=== PATIENT | male | born 1960 | race Caucasian/White ===

== ENCOUNTER 2017-02-18 21:28 | Inpatient (IN) | payer BC ==
[~2017-02-18] VITALS: Ht 172.7 cm; Wt 87.0 kg
[~2017-02-18 21:28] MED LIST: APRESOLINE100 MG PO; ASPIR 8181 M1 PO; ASPIRIN E.C.81 M2 PO; ASPIRIN81 M1 PO; BETAPACE,SORIN120 M1 PO; CARVEDILOL12.5 MG PO; Cordarone, Pacerone PO; HYDRALAZINE HC100 MG PO; LIPITOR40 MG PO; Proventil,Ventolin H IH; SOTALOL160 MG PO; SOTALOL80 MG PO; SPIRONOLACTONE50 MG PO; Toprol XL PO; ZESTRIL,PRINIV2.5 MG PO; ZESTRIL,PRINIVI10 MG PO
[2017-02-18 21:57] LABS: BASOPHIL (%) 1.5 % (0-1); BASOPHIL COUNT 0.1 K/uL (0-0.1); EOSINOPHIL (%) 3.4 % (0-5); EOSINOPHIL COUNT 0.3 K/uL (0-0.3); HEMATOCRIT 48.6 % (38.0-50.0); HEMOGLOBIN 16.2 G/DL (12.5-16.6); IMMATURE GRANULOCYTE (%) 0.5 % (0.0-0.7); LYMPHOCYTE (%) 25.7 % (15-42); LYMPHOCYTE COUNT 2.4 K/uL (1.0-2.8); MCH 31.5 PG (29.0-34.0); MCHC 33.3 G/DL (30.0-36.0); MCV 94.6 FL (86-99); MONOCYTE (%) 13.7 % (3-12); MONOCYTE COUNT 1.3 K/uL (0-0.8); NEUTROPHIL (%) 55.2 % (45-76); NEUTROPHIL COUNT 5.1 K/uL (1.8-6.4); PLATELET COUNT 265 K/uL (156-360); RBC DIS.WIDTH-CV 12.1 % (11.8-14.6); RBC DIS.WIDTH-SD 42.4 % (39-53); RED BLOOD COUNT 5.14 M/uL (4.00-5.50); WHITE BLOOD COUNT 9.2 K/uL (4.1-10.2)
[2017-02-18 22:12] LABS: CHLORIDE 97 mEq/L (99-109); POTASSIUM 3.8 mEq/L (3.7-5.4); SODIUM 131 mEq/L (136-147)
[2017-02-18 22:14] LABS: GLUCOSE 113 mg/dL (70-99)
[2017-02-18 22:18] LABS: CREATININE 0.8 mg/dL (0.6-1.3); GFR ESTIMATE (CALCULATED) > 59 mL/min/ (58.99-99999)
[2017-02-18 22:19] LABS: UREA NITROGEN (BUN) 14 mg/dL (9-23)
[2017-02-18 22:23] LABS: TROP-I INTERPRETATION NEGATIVE; TROPONIN-I 0.28 ng/mL (0.0-0.30)
[2017-02-19] VITALS (7 sets, daily range): BP systolic 124–157; BP diastolic 70–84
[2017-02-19 03:11] LABS: TROP-I INTERPRETATION NEGATIVE; TROPONIN-I 0.27 ng/mL (0.0-0.30)
[2017-02-20 00:36] VITALS: BP 125/67
[2017-02-20 04:32] VITALS: BP 132/81
[2017-02-20 06:25] LABS: HEMATOCRIT 46.1 % (38.0-50.0); HEMOGLOBIN 15.4 G/DL (12.5-16.6); MCH 30.6 PG (29.0-34.0); MCHC 33.4 G/DL (30.0-36.0); MCV 91.7 FL (86-99); PLATELET COUNT 264 K/uL (156-360); RBC DIS.WIDTH-CV 12.5 % (11.8-14.6); RBC DIS.WIDTH-SD 42.2 % (39-53); RED BLOOD COUNT 5.03 M/uL (4.00-5.50); WHITE BLOOD COUNT 12.5 K/uL (4.1-10.2)
[2017-02-20 06:54] LABS: CHLORIDE 97 MEQ/L (99-109); CREATININE 0.7 MG/DL (0.6-1.3); GFR ESTIMATE (CALCULATED) > 59 mL/min/ (58.99-99999); GLUCOSE 158 mg/dL (70-99); MAGNESIUM 2.1 mg/dl (1.3-2.7); POTASSIUM 4.2 MEQ/L (3.7-5.4); SODIUM 136 MEQ/L (136-147); UREA NITROGEN (BUN) 21 mg/dL (9-23)
[2017-02-20 07:39] VITALS: BP 148/90
[2017-02-20 08:06] LABS: TROP-I INTERPRETATION NEGATIVE; TROPONIN-I 0.15 ng/mL (0.0-0.30)
[2017-02-20 11:13] VITALS: BP 125/76
[2017-02-20] MEDS ORDERED: LASIX20 MG PO (11:16)
[2017-02-20] MEDS ORDERED: DELTASONE20 M1 PO (11:16)
== END 2017-02-20 13:05 | disposition home or self-care (01) | DRG 292 ==
LOC: EME 21:28 → EDOF 02-19 01:41 → ENRESERV 02-19 01:48 → 4EAST 02-19 03:33 → ENRESERV 02-19 21:18 → 5SOUTH 02-19 23:30 → ENPENDDIS 02-20 → 5SOUTH 02-20 13:05
PROVIDERS: Emergency Medicine Emergency Medical Services; Hospitalist
DX: I11.0 Hypertensive heart disease with heart failure (principal); J44.1 Chronic obstructive pulmonary disease with (acute) exacerbation; I25.5 Ischemic cardiomyopathy; I50.31 Acute diastolic (congestive) heart failure; E78.5 Hyperlipidemia, unspecified; K92.2 Gastrointestinal hemorrhage, unspecified; I47.2 Ventricular tachycardia; R74.8 Abnormal levels of other serum enzymes; I25.10 Atherosclerotic heart disease of native coronary artery without angina pectoris; I49.3 Ventricular premature depolarization; F10.10 Alcohol abuse, uncomplicated; E87.1 Hypo-osmolality and hyponatremia; F41.9 Anxiety disorder, unspecified; Z77.22 Contact with and (suspected) exposure to environmental tobacco smoke (acute) (chronic); R09.02 Hypoxemia; I25.2 Old myocardial infarction; Z79.899 Other long term (current) drug therapy; Z79.82 Long term (current) use of aspirin; Z95.810 Presence of automatic (implantable) cardiac defibrillator; Z87.891 Personal history of nicotine dependence; Z85.819 Personal history of malignant neoplasm of unspecified site of lip, oral cavity, and pharynx
CPT/HCPCS: 71010; 80048; 83735; 83880; 84484; 85025; 85027; 93005; 94640; 94644; 94645; 94799; 99281; 99285; J1644; J1940; J2920; J3475; S0028